=== PATIENT | male | born 1995 | race African-American/Black ===

== ENCOUNTER 2024-06-13 10:35 | Emergency (ER) | payer OTHER ==
[~2024-06-13] VITALS: Ht 182.9 cm; Wt 100.0 kg
[2024-06-13] MEDS ORDERED: PERC5TAB12 PO (20:58)
[2024-06-13] MEDS: OXYCODONE/APAP 5MG/325MG(HOME DOSE PACK) PO ONE (21:05)
[2024-06-13] MEDS: PERCOCET 5MG/325MG TAB PO ONE (21:06)
[2024-06-13 21:25] VITALS: BP 158/85; TEMP 98; O2SAT 98
== END 2024-06-13 21:39 | disposition home or self-care (01) ==
LOC: M ED 10:35
DX: S86.812A Strain of other muscle(s) and tendon(s) at lower leg level, left leg, initial encounter (principal); S82.002A Unspecified fracture of left patella, initial encounter for closed fracture; X50.0XXA Overexertion from strenuous movement or load, initial encounter; Y92.830 Public park as the place of occurrence of the external cause; Y93.89 Activity, other specified; Y99.8 Other external cause status

== ENCOUNTER 2024-06-18 13:55 | Day surgery (SDC) | payer OTHER ==
[~2024-06-18] VITALS: Ht 182.9 cm; Wt 103.0 kg
[~2024-06-18 13:55] MED LIST: PERC5TAB12 PO
[2024-06-18] MEDS ORDERED: LR 1,000 ML IV SCH ×2 (14:35→18:35)
[2024-06-18] MEDS ORDERED: propofoL 200 MG/20 ML VIAL As Ordered ONE (14:45)
[2024-06-18] MEDS ORDERED: KETOROLAC 60MG 2ML VIAL As Ordered ONE (14:45)
[2024-06-18] MEDS ORDERED: ONDANSETRON 4MG 2ML VIAL As Ordered ONE (14:45)
[2024-06-18] MEDS ORDERED: LIDOCAINE 2% 100MG/5ML SDV (FOR ANES.) As Ordered ONE (14:45)
[2024-06-18] MEDS ORDERED: MIDAZOLAM INJ 2MG/2ML VIAL As Ordered ONE (14:46)
[2024-06-18] MEDS ORDERED: fentaNYL 250 MCG/5 ML INJECTION As Ordered ONE (14:46)
[2024-06-18] MEDS ORDERED: SEVOFLURANE INHAL SOLN 250 ML BTL As Ordered ONE (14:53)
[2024-06-18] MEDS ORDERED: dexAMETHasone 10MG/1ML VIAL PRES.FREE PN ONE (15:40)
[2024-06-18] MEDS ORDERED: MIDAZOLAM INJ 2MG/2ML VIAL IV PRN (15:40)
[2024-06-18] MEDS ORDERED: LIDOCAINE 1% SDV 5ML VIAL PN ONE (15:40)
[2024-06-18] MEDS ORDERED: ROPIvacaine 0.5% 30ML VIAL PN ONE (15:40)
[2024-06-18] MEDS ORDERED: fentaNYL 100 MCG/2 ML INJECTION IV PRN ×2 (15:40→18:35)
[2024-06-18] MEDS ORDERED: dexmedeTOMIDine (4MCG/ML)200MCG/50ML BTL (PRECEDEX) As Ordered ONE (16:21)
[2024-06-18] MEDS: ceFAZolin 2 GM/D5W 50 ML IV BAG As Ordered ONE (16:53)
[2024-06-18] MEDS: TRANEXAMIC ACID 100 MG/ML 10ML VIAL As Ordered ONE (17:00)
[2024-06-18] MEDS ORDERED: ePHEDrine SULFATE 25 MG/5 ML(5MG/ML) SYRINGE As Ordered ONE (17:07)
[2024-06-18] MEDS ORDERED: ACETAMINOPHEN 1000MG 100ML IV BAG As Ordered ONE (17:26)
[2024-06-18] MEDS: EPINEPHrine 1MG/ML INJ 30ML MD-VIAL As Ordered ONE (17:45)
[2024-06-18] MEDS ORDERED: HYDROmorphone HCL 2MG/ML 1ML VIAL As Ordered ONE (17:50)
[2024-06-18] MEDS: oxyCODONE 5MG TAB PO PRN (19:22)
[2024-06-18] MEDS: ONDANSETRON 4MG 2ML VIAL IV PRN (19:32)
[2024-06-18] MEDS: HYDROMORPHONE HCL 0.5 MG/ 0.5 ML SYRINGE IV PRN (19:32)
[2024-06-18 20:00] VITALS: BP 146/86; TEMP 98.4; O2SAT 98
== END 2024-06-18 20:27 | disposition home or self-care (01) ==
LOC: M SDC 13:55
PROVIDERS: ATTEND Orthopaedic Surgery
DX: S76.112A Strain of left quadriceps muscle, fascia and tendon, initial encounter (principal); X58.XXXA Exposure to other specified factors, initial encounter; Y93.67 Activity, basketball; Y92.9 Unspecified place or not applicable; F17.290 Nicotine dependence, other tobacco product, uncomplicated; G47.33 Obstructive sleep apnea (adult) (pediatric)
CPT/HCPCS: 27380; 76000; C1713; C9290; J0131; J0171; J0690; J1100; J1170; J1885; J2250; J2405; J3010

== ENCOUNTER → 2025-10-13 | Outpatient (REF) | payer OTHER ==
[2025-10-13 10:05] LABS: SEMEN APPEARANCE OPAQUE (OPAQUE); SEMEN VISCOSITY LIQUID (LIQUID); SEMEN VOLUME 5.2 ml (2.0-5.0)
[2025-10-13 10:06] LABS: SPERM CONCENTRATION 160.3 M/ml (>=15.0); WBC CONCENTRATION <=1 M/ml (<=1 M/ml)
[2025-10-13 10:07] LABS: TOTAL PROGRESSIVE SPERM 255.2 M/Ejac.
== END ==
LOC: M LAB REF 09:40
PROVIDERS: ATTEND Student in an Organized Health Care Education/Training Program
DX: N46.9 Male infertility, unspecified (principal)